=== PATIENT | male | born 1970 | race Caucasian/White ===

== ENCOUNTER 2021-03-30 06:39 | Observation (INO) ==
[2021-03-30] MEDS ORDERED: fentaNYL 100 mcg/2 ml 50 MCG/ML VIAL ONE ×3 (08:38→10:28)
[2021-03-30] MEDS ORDERED: Midazolam 5 mg/5 ml VIAL 1 mg/ml 5 ml VIAL (5 mg) ONE (08:38)
[2021-03-30] MEDS ORDERED: Heparin 1,000 UNIT/ML 10 ml (10,000 UNITS) CATHLAB/DIALYSIS ONE ×2 (08:38→09:47)
[2021-03-30] MEDS ORDERED: VERAPAMIL 2.5 MG/ML 2 ML VIAL ** 5 mg/2 ml ONE (08:38)
[2021-03-30] MEDS ORDERED: Heparin 2 UNITS/ML 1000 mls 3,000 ML IV ONE (08:39)
[2021-03-30] MEDS ORDERED: niCARdipine 0.1MG/ML IVPREMIX 20 MG/200 ML BAG IV ONE (08:39)
[2021-03-30] MEDS ORDERED: Iohexol 350 (CONTRAST) 200 ML MDV IV ONE ×3 (08:39→10:04)
[2021-03-30] MEDS ORDERED: nitroGLYCERIN DRIP 25,000 MCG/250 ML BTL ONE (08:39)
[2021-03-30] MEDS ORDERED: Lidocaine 1% VIAL 10 MG/ML VIAL ONE (08:39)
[2021-03-30 10:45] LABS: POC SO2 91 %
[2021-03-30] MEDS: Nicotine PATCH 7 MG/24 HR PATCH TRANSDERM SCH (12:10)
[2021-03-31] MEDS: Nicotine PATCH 7 MG/24 HR PATCH TRANSDERM SCH (08:58)
[2021-03-31 09:58] VITALS: BP 163/103
== END 2021-03-31 09:30 | disposition home or self-care (01) ==
LOC: CHICATH 06:39 → INTOOBSV 11:26 → ICU 11:26
PROVIDERS: ADMIT Internal Medicine; ATTEND Internal Medicine

== ENCOUNTER 2022-01-10 10:18 | Observation (INO) ==
[~2022-01-10 10:18] MED LIST: Buffered Lidocaine 1% SYRIN 1 ml INTRADERM ONE; Lactated Ringers 1000 ml BAG 1,000 ML IV SCH
[2022-01-10] MEDS ORDERED: ceFAZolin 2 GM PREMIX 2 GM/50 ML BAG ONE (11:01)
[2022-01-10] MEDS ORDERED: Famotidine IV 10 MG/ML 2 ml VIAL (20 mg) IV SLOW PU ONE (12:45)
[2022-01-10] MEDS ORDERED: Midazolam 2 mg/2 ml VIAL 1 mg/ml 2 ml VIAL (2 mg) ONE (12:51)
[2022-01-10] MEDS ORDERED: Lidocaine 2% PF 5 ML VIAL ONE (12:51)
[2022-01-10] MEDS ORDERED: fentaNYL 100 mcg/2 ml 50 MCG/ML VIAL ONE (12:51)
[2022-01-10] MEDS ORDERED: Propofol 10 MG/ML 20 ML BTL ONE ×2 (12:51→13:43)
[2022-01-10] MEDS ORDERED: Famotidine IV 10 MG/ML 2 ml VIAL (20 mg) ONE (12:52)
[2022-01-10] MEDS ORDERED: Rocuronium 50 mg VIAL 10 mg/ml 5 ml VIAL (50 mg) ONE (12:53)
[2022-01-10] MEDS ORDERED: Lidocaine 1% w EPI 1:200,000 SDV 30 ML VIAL ONE (13:14)
[2022-01-10] MEDS ORDERED: Thrombin 5,000 UNITS 1 APPLIC KIT - topical use - TOPICAL ONE (13:14)
[2022-01-10] MEDS ORDERED: Gelfoam Sponge SIZE 100 SPONGE ONE (13:16)
[2022-01-10] MEDS ORDERED: Levalbuterol HFA INHALER MDI ONE (13:48)
[2022-01-10] MEDS ORDERED: fentaNYL 250 mcg/5 ml 50 MCG/ML 5 ml VIAL (250 MCG) ONE (14:04)
[2022-01-10] MEDS ORDERED: Dexamethasone IV 4 MG/ML VIAL 1 ml VIAL ONE (14:13)
[2022-01-10] MEDS ORDERED: Ondansetron 4 mg VIAL 2 MG/ML 2 ml VIAL ONE (14:13)
[2022-01-10] MEDS ORDERED: Acetaminophen IV 1 GM/100ML 1,000 MG/100 ML BAG IV ONE (14:32)
[2022-01-10] MEDS ORDERED: Naloxone 0.4 mg VIAL 0.4 mg/ml 1 ml VIAL IV PRN (15:17)
[2022-01-10] MEDS ORDERED: fentaNYL 100 mcg/2 ml 50 MCG/ML VIAL IV PRN (15:17)
[2022-01-10] MEDS ORDERED: Ondansetron 4 mg VIAL 2 MG/ML 2 ml VIAL IV PRN (15:33)
[2022-01-10] MEDS ORDERED: Magnesium Hydroxide LIQ 30 ML UDC PO PRN (15:33)
[2022-01-10] MEDS ORDERED: Lactated Ringers 1000 ml BAG 1,000 ML IV SCH (16:00)
[2022-01-10] MEDS ORDERED: Nicotine PATCH 21 MG/24 HR PATCH ONE (17:19)
[2022-01-11 07:32] VITALS: BP 161/100
[2022-01-11] MEDS ORDERED: Nicotine PATCH 21 MG/24 HR PATCH TRANSDERM SCH (09:00)
[2022-01-11] MEDS ORDERED: DULoxetine DR 60 mg CAP PO SCH (09:00)
== END 2022-01-11 10:28 | disposition home or self-care (01) ==
LOC: OR 10:18 → SSU 10:18
PROVIDERS: ADMIT Neurological Surgery; ATTEND Neurological Surgery